=== PATIENT | male | born 1935 | race Caucasian/White ===

== ENCOUNTER 2018-05-13 12:58 | Inpatient (IN) | payer MEDICARE, OTHER ==
[~2018-05-13] VITALS: Ht 165.1 cm; Wt 52.4 kg
[2018-05-13] MEDS ORDERED: GABA100C9 PO (13:52)
[2018-05-13] MEDS ORDERED: METO25TA5 PO (13:52)
[2018-05-13] MEDS ORDERED: LEVO100T8 PO (13:52)
[2018-05-13] MEDS ORDERED: PANT1INJ3 PO (13:52)
[2018-05-13] MEDS ORDERED: TAMS0.4C36 PO (13:52)
[2018-05-13] MEDS ORDERED: NITROGLYCERIN 0.4 MG SL TAB SL PRN (14:15)
[2018-05-13] MEDS ORDERED: MORPHINE SULF(PF) 0.5MG/ML 10ML VIAL IV PRN (14:15)
[2018-05-13 16:02] VITALS: BP 91/57
[2018-05-13] MEDS ORDERED: PANTOPRAZOLE 40 MG TAB PO ONE (16:15)
[2018-05-13 16:58] LABS: Basophils # (auto) 0 uL; Basophils % (auto) 0.7 % (0.0-2.0); Eosinophils # (auto) 0.2 uL; Eosinophils % (auto) 3.5 % (0.0-7.0); Hematocrit 36.1 % (41.0-53.0); Hemoglobin 11.8 g/dL (13.5-17.5); Lymphocytes # (auto) 1.8 uL; Lymphocytes % (auto) 30.9 % (10.0-50.0); Mean Corpuscular Hemoglobin 29.4 pg (28.0-32.0); Mean Corpuscular Hgb Conc. 32.7 g/dL (32.0-36.0); Mean Corpuscular Volume 89.9 fL (80.0-100.0); Monocytes # (auto) 0.8 uL; Monocytes % (auto) 12.7 % (0.0-12.0); Neutrophils # (auto) 3.1 uL; Neutrophils % (auto) 52.2 % (37.0-80.0); Nucleated Red Blood Cells % 0.1 %; Platelet Count (auto) 333 10^3/uL (140-450); Red Blood Cells 4.02 10^6/uL (4.5-5.90); Red Cell Distribution Width 16.1 % (11.8-14.3)
[2018-05-13 17:08] LABS: Partial Thromboplastin Time 27.5 sec (23.78-33.04); Prothrombin Time 10.7 sec (9.27-12.13)
[2018-05-13 17:11] LABS: Albumin 2.7 g/dL (3.4-5.0); BUN/Creatinine Ratio 20.5; Bilirubin, Total 0.3 mg/dL (0.2-1.0); Calcium 8.3 mg/dL (8.5-10.1); Potassium 4.3 mmol/L (3.5-5.1); Total Protein 6.1 g/dL (6.4-8.2)
[2018-05-13 17:17] VITALS: BP 97/53
[2018-05-13] MEDS: TAMSULOSIN HYDROCHLORIDE 0.4 MG CAP PO SCH (17:27)
[2018-05-13] MEDS: PIPERACILLIN-TAZOB 2.25GM 50 ML IV SCH (17:27)
[2018-05-13 18:28] LABS: Urine Bacteria MOD /hpf (None Seen); Urine Blood 1+ /uL (Negative); Urine Specific Gravity 1.015 (1.001-1.035); Urine WBC 114 /hpf (0 - 3)
[2018-05-13 20:00] VITALS: BP 105/63
[2018-05-13] MEDS: GABAPENTIN 100 MG CAP PO SCH (21:15)
[2018-05-13 21:55] VITALS: BP 105/63
[2018-05-14] MEDS: PIPERACILLIN-TAZOB 2.25GM 50 ML IV SCH ×4 (04:21→17:34)
[2018-05-14 05:39] VITALS: BP 129/73
[2018-05-14] MEDS: LEVOTHYROXINE SODIUM 100 MCG TAB PO SCH (06:17)
[2018-05-14] MEDS: GABAPENTIN 100 MG CAP PO SCH ×3 (06:17→21:06)
[2018-05-14 08:00] VITALS: BP 125/71
[2018-05-14] MEDS ORDERED: METOPROLOL SUCCINATE XL 50 MG TAB PO SCH (10:00)
[2018-05-14] MEDS: PANTOPRAZOLE 40 MG TAB PO SCH (10:34)
[2018-05-14 12:00] VITALS: BP 104/60
[2018-05-14] MEDS: PHENAZOPYRIDINE HCL 100 MG TAB PO SCH ×2 (12:39→17:34)
[2018-05-14 17:00] VITALS: BP 107/66
[2018-05-14] MEDS: TAMSULOSIN HYDROCHLORIDE 0.4 MG CAP PO SCH (17:34)
[2018-05-14 22:00] VITALS: BP 110/75
[2018-05-15] MEDS: PIPERACILLIN-TAZOB 2.25GM 50 ML IV SCH ×4 (00:12→18:38)
[2018-05-15] MEDS: LEVOTHYROXINE SODIUM 100 MCG TAB PO SCH (05:10)
[2018-05-15] MEDS: GABAPENTIN 100 MG CAP PO SCH ×3 (05:10→21:27)
[2018-05-15 05:55] VITALS: BP 122/73
[2018-05-15 06:52] LABS: INR 0.96 (0.9-1.15); Partial Thromboplastin Time 27.1 sec (23.78-33.04); Prothrombin Time 10.3 sec (9.27-12.13)
[2018-05-15 06:53] LABS: Basophils # (auto) 0.1 uL; Basophils % (auto) 0.8 % (0.0-2.0); Eosinophils # (auto) 0.5 uL; Eosinophils % (auto) 7.1 % (0.0-7.0); Hematocrit 36.6 % (41.0-53.0); Hemoglobin 12.3 g/dL (13.5-17.5); Lymphocytes % (auto) 31.5 % (10.0-50.0); Mean Corpuscular Hemoglobin 29.7 pg (28.0-32.0); Mean Corpuscular Hgb Conc. 33.7 g/dL (32.0-36.0); Mean Corpuscular Volume 88.3 fL (80.0-100.0); Monocytes # (auto) 0.7 uL; Monocytes % (auto) 10.5 % (0.0-12.0); Neutrophils # (auto) 3.2 uL; Neutrophils % (auto) 50.1 % (37.0-80.0); Platelet Count (auto) 332 10^3/uL (140-450); Red Blood Cells 4.15 10^6/uL (4.5-5.90); Red Cell Distribution Width 15.5 % (11.8-14.3); White Blood Cell 6.5 10^3/uL (4.4-10.8)
[2018-05-15 07:10] LABS: BUN/Creatinine Ratio 14.7; Calcium 8.5 mg/dL (8.5-10.1)
[2018-05-15] MEDS: PHENAZOPYRIDINE HCL 100 MG TAB PO SCH ×3 (07:56→18:38)
[2018-05-15 08:00] VITALS: BP 126/80
[2018-05-15 08:44] VITALS: BP 138/79
[2018-05-15 08:46] VITALS: BP 126/80
[2018-05-15] MEDS: PANTOPRAZOLE 40 MG TAB PO SCH (09:12)
[2018-05-15] MEDS: SODIUM CHLORIDE 0.9% 1,000 ML IV SCH ×2 (11:39→21:29)
[2018-05-15 13:00] VITALS: BP 114/74
[2018-05-15] MEDS ORDERED: fentaNYL CITRATE 100 MCG/2 ML VL ONE (15:26)
[2018-05-15] MEDS ORDERED: MEPERIDINE HCL (50 MG/ML) 1 ML VIAL ONE (15:27)
[2018-05-15] MEDS ORDERED: MIDAZOLAM HCL 1MG/1ML-2 ML VIAL ONE (15:27)
[2018-05-15] MEDS ORDERED: MIDAZOLAM HCL 1MG/1ML-2 ML VIAL IV PRN (15:30)
[2018-05-15] MEDS ORDERED: KETOROLAC TROMETH 30 MG/ML 1ML VIAL IV ONE (15:30)
[2018-05-15] MEDS ORDERED: LABETALOL HCL 5 MG/ML 4ML SYRINGE IV PRN (15:30)
[2018-05-15] MEDS ORDERED: ONDANSETRON HCL 4 MG/2 ML VIAL IV ONE (15:30)
[2018-05-15] MEDS ORDERED: ePHEDrine SULFATE 50 MG/ML AMP IV PRN (15:30)
[2018-05-15] MEDS ORDERED: MORPHINE SULF INJ 2 MG/ML SYRINGE 1ML IV PRN (15:30)
[2018-05-15] MEDS ORDERED: fentaNYL CITRATE 100 MCG/2 ML VL IV ONE (16:00)
[2018-05-15] MEDS ORDERED: MORPHINE SULFATE 8mg/ml INJ SDV IV ONE (16:00)
[2018-05-15] MEDS ORDERED: DEXAMETHASONE SOD PHOS 10MG/1ML VIAL INJ ONE (16:00)
[2018-05-15] MEDS ORDERED: PROPOFOL 10 MG/ML 20 ML IV ONE (16:04)
[2018-05-15] MEDS: TAMSULOSIN HYDROCHLORIDE 0.4 MG CAP PO SCH (18:38)
[2018-05-15 22:00] VITALS: BP 99/66
[2018-05-16] MEDS: PIPERACILLIN-TAZOB 2.25GM 50 ML IV SCH ×2 (05:16)
[2018-05-16] MEDS: LEVOTHYROXINE SODIUM 100 MCG TAB PO SCH (05:16)
[2018-05-16] MEDS: GABAPENTIN 100 MG CAP PO SCH ×3 (05:16→19:59)
[2018-05-16 06:02] VITALS: BP 124/72
[2018-05-16 07:10] LABS: Basophils # (auto) 0 uL; Basophils % (auto) 0.1 % (0.0-2.0); Eosinophils # (auto) 0 uL; Lymphocytes # (auto) 0.8 uL; Lymphocytes % (auto) 9.4 % (10.0-50.0); Mean Corpuscular Hemoglobin 29.9 pg (28.0-32.0); Mean Corpuscular Hgb Conc. 33.3 g/dL (32.0-36.0); Mean Corpuscular Volume 89.6 fL (80.0-100.0); Monocytes # (auto) 0.2 uL; Monocytes % (auto) 1.8 % (0.0-12.0); Neutrophils # (auto) 7.9 uL; Neutrophils % (auto) 88.7 % (37.0-80.0); Platelet Count (auto) 380 10^3/uL (140-450); Red Blood Cells 4.68 10^6/uL (4.5-5.90); Red Cell Distribution Width 15.5 % (11.8-14.3); White Blood Cell 8.9 10^3/uL (4.4-10.8)
[2018-05-16 07:22] LABS: BUN/Creatinine Ratio 14.9; Calcium 8.6 mg/dL (8.5-10.1); Potassium 4.3 mmol/L (3.5-5.1)
[2018-05-16 08:00] VITALS: BP 105/67
[2018-05-16 08:48] VITALS: BP 105/67
[2018-05-16] MEDS: PANTOPRAZOLE 40 MG TAB PO SCH (09:28)
[2018-05-16] MEDS: PHENAZOPYRIDINE HCL 100 MG TAB PO SCH ×3 (09:28→18:05)
[2018-05-16 13:00] VITALS: BP 115/74
[2018-05-16] MEDS: cefTRIAXone 1GM/10ml IVPUSH 10 ML IV SCH (13:47)
[2018-05-16 16:44] VITALS: BP 103/54
[2018-05-16] MEDS: TAMSULOSIN HYDROCHLORIDE 0.4 MG CAP PO SCH (18:05)
[2018-05-16 22:00] VITALS: BP 98/67
[2018-05-17 05:00] VITALS: BP 120/73
[2018-05-17] MEDS: GABAPENTIN 100 MG CAP PO SCH ×3 (05:31→21:32)
[2018-05-17] MEDS: LEVOTHYROXINE SODIUM 100 MCG TAB PO SCH (05:31)
[2018-05-17 07:54] LABS: BUN/Creatinine Ratio 27.6; Calcium 8.5 mg/dL (8.5-10.1); Potassium 4.1 mmol/L (3.5-5.1)
[2018-05-17 08:25] VITALS: BP 124/76
[2018-05-17] MEDS: cefTRIAXone 1GM/10ml IVPUSH 10 ML IV SCH (09:02)
[2018-05-17] MEDS: PHENAZOPYRIDINE HCL 100 MG TAB PO SCH ×3 (09:02→17:56)
[2018-05-17] MEDS: PANTOPRAZOLE 40 MG TAB PO SCH (10:35)
[2018-05-17 12:55] VITALS: BP 103/62
[2018-05-17 16:51] VITALS: BP 104/56
[2018-05-17] MEDS: TAMSULOSIN HYDROCHLORIDE 0.4 MG CAP PO SCH (17:56)
[2018-05-17 22:00] VITALS: BP 91/61
[2018-05-18 05:02] VITALS: BP 100/63
[2018-05-18] MEDS: GABAPENTIN 100 MG CAP PO SCH ×3 (05:49→20:05)
[2018-05-18] MEDS: LEVOTHYROXINE SODIUM 100 MCG TAB PO SCH (05:50)
[2018-05-18 08:30] VITALS: BP 93/53
[2018-05-18] MEDS: PHENAZOPYRIDINE HCL 100 MG TAB PO SCH ×3 (09:52→17:58)
[2018-05-18] MEDS: PANTOPRAZOLE 40 MG TAB PO SCH (09:52)
[2018-05-18] MEDS: cefTRIAXone 1GM/10ml IVPUSH 10 ML IV SCH (09:52)
[2018-05-18 12:30] VITALS: BP 112/57
[2018-05-18 17:17] VITALS: BP 113/79
[2018-05-18] MEDS: TAMSULOSIN HYDROCHLORIDE 0.4 MG CAP PO SCH (17:58)
[2018-05-18 22:23] VITALS: BP 95/52
[2018-05-19 05:06] VITALS: BP 96/53
[2018-05-19] MEDS: LEVOTHYROXINE SODIUM 100 MCG TAB PO SCH (06:02)
[2018-05-19] MEDS: GABAPENTIN 100 MG CAP PO SCH (06:02)
[2018-05-19 08:30] VITALS: BP 104/66
[2018-05-19] MEDS: cefTRIAXone 1GM/10ml IVPUSH 10 ML IV SCH (09:00)
[2018-05-19] MEDS: PHENAZOPYRIDINE HCL 100 MG TAB PO SCH ×2 (09:00→12:00)
[2018-05-19] MEDS: PANTOPRAZOLE 40 MG TAB PO SCH (10:49)
[2018-05-19 12:30] VITALS: BP 98/62
[2018-05-19 12:31] VITALS: BP 104/66
== END 2018-05-19 14:15 | disposition home or self-care (01) | DRG 666 ==
LOC: CENTRAL 13:01
PROVIDERS: ADMIT Internal Medicine; ATTEND Internal Medicine
PROC: 0VT08ZZ Resection of Prostate, Via Natural or Artificial Opening Endoscopic (ICD-10-PCS; principal; 2018-05-13)
DX: N39.0 Urinary tract infection, site not specified (principal); E87.1 Hypo-osmolality and hyponatremia; E44.0 Moderate protein-calorie malnutrition; Z68.1 Body mass index [BMI] 19.9 or less, adult; N40.1 Benign prostatic hyperplasia with lower urinary tract symptoms; N13.8 Other obstructive and reflux uropathy; I10 Essential (primary) hypertension; E03.9 Hypothyroidism, unspecified; B96.4 Proteus (mirabilis) (morganii) as the cause of diseases classified elsewhere; R33.8 Other retention of urine; I25.10 Atherosclerotic heart disease of native coronary artery without angina pectoris; F17.200 Nicotine dependence, unspecified, uncomplicated; Z79.899 Other long term (current) drug therapy; Z90.79 Acquired absence of other genital organ(s)
CPT/HCPCS: 36415; 71045; 80048; 80053; 81001; 84443; 85025; 85610; 85730; 86850; 86900; 86901; 87086; 87088; 87186; 93005; J1100; J2250; J2543; J2704